=== PATIENT | male | born 1980 | race Caucasian/White ===

== ENCOUNTER 2019-06-07 12:59 | Outpatient (CLI) | payer BC, SELFPAY ==
[2019-06-07 13:22] LABS: HCT 45.4 % (40.0-50.0); HGB 15.4 g/dL (13.5-17.5); Mean Corp. HGB Concentration 33.9 g/dL (32.0-36.0); Mean Corpuscular Hemoglobin 30.2 pg (27.0-33.0); Mean Platelet Volume 7.8 fL (8.0-11.0); Platelet Count 235 x1000/uL (130-400); RBC Distribution Width 13.4 % (11.8-14.1); White Blood Cell Count 14.07 k/cumm (4.4-10.8)
[2019-06-07 14:28] LABS: ESR 7 mm/hr (0-15)
[2019-06-07 14:38] LABS: ALT 36 U/L (16-63); AST 17 U/L (15-37); Albumin 4.2 g/dL (3.4-5.0); Alkaline Phosphatase 80 U/L (46-116); Amylase 35 U/L (25-115); Anion Gap 10.3 mmol/L (3-11); BUN 15 mg/dL (7-18); Bilirubin, Direct 0.19 mg/dL (0.00-0.20); Bilirubin, Total 0.9 mg/dL (0.2-1.0); CO2 26.7 mmol/L (21.0-32.0); CREATININE 0.94 mg/dL (0.70-1.30); Chloride 99 mmol/L (98-107); Glucose 99 mg/dL (70-100); Lipase 79 U/L (73-393); Potassium 4.3 mmol/L (3.5-5.1); Sodium 136 mmol/L (136-145); Total Protein 7.4 g/dL (6.4-8.2)
[2019-06-11 13:22] LABS: Lyme Ab w Rflx to Lyme Confirm Negative (Negative)
[2019-06-12 16:12] LABS: Anaplasma phagocytophilum Negative (Negative); B. miyamotoi PCR Negative (Negative); Babesia divergens/MO-1 Negative (Negative); Babesia duncani Negative (Negative); Babesia microti Negative (Negative); Ehrlichia chaffeensis Negative (Negative); Ehrlichia ewingii/canis Negative (Negative); Ehrlichia muris eauclairensis Negative (Negative)
== END 2019-06-07 13:19 ==
PROVIDERS: Nurse Practitioner Family; PCP Family Medicine; Visit Provider Internal Medicine
DX: R19.7 Diarrhea, unspecified (principal); F10.20 Alcohol dependence, uncomplicated; B35.1 Tinea unguium; F10.10 Alcohol abuse, uncomplicated; R11.2 Nausea with vomiting, unspecified
CPT/HCPCS: 36415; 80053; 80076; 83690; 85027; 85652; 86704; 86709; 86803; 87340; 87798; 82150; 86618

== ENCOUNTER 2020-04-14 15:39 | Emergency (ER) | payer BC, SELFPAY ==
[2020-04-14 15:52] VITALS: BP 143/98; PULSE 94; RESP 18; TEMP 37; O2SAT 97
--- NOTE | 2020-04-14 16:03 | W.ED.GENAD ---
Discharge Plan Disposition Patient Disposition: HOME Condition: Good Discharge Details Clinical Impression: Laceration Primary Care Provider: Ashu Kahn ED Provider: Alisa Madera Home Meds and New Rx's Prescriptions: Continued clonidine HCl 0.1 mg tablet 0.1 mg PO BID RF: 0 bupropion HCl [Wellbutrin XL] 300 mg tablet extended release 24 hr 300 mg PO DAILY Qty: 90 RF: 3 dextroamphetamine-amphetamine 30 mg capsule,extended release 24hr 30 mg PO .COMPLEX MDD 2 Qty: 60 RF: 0 acetaminophen [Tylenol Extra Strength] 500 MG tablet 1,000 mg PO PRN RF: 0 trazodone 50 mg tablet 50 mg PO QHS PRN (Reason: insomnia) Qty: 30 RF: 1 ondansetron 4 mg tablet,disintegrating 4 mg PO Q8H PRN (Reason: nausea and vomiting) Qty: 60 RF: 0 ibuprofen 200 MG capsule 200 mg PO PRN PRNRF: 0 Discharge Instructions Instructions: Laceration (ED) Additional Instructions: you have 5 stitches that need to be removed in 7-10 days. return to ED to have them removed or see pcp. keep dressing clean and dry, remove tomorrow, wash daily with warm soapy water, rinse well, pat dry completely. apply dry dressing to protect report signs of infection immediately Medical Decision Making LET applied, would further anesthetized with lido/epi with good effect. wound bed examined, no debris or FB, irrigated with NS, wound closed using 4-0 ethilon 5 sutures, well approximated. cleaned by nursing , dry dressing applied. HPI General Date/Time Provider Initiated Documentation: 04/14/20 16:02. Limitations to Documentation: no limitations. Information obtained by: patient. HPI Narrative: presents here after injuring his left base of thumb with a sledge hammer, not a crushing injury but an abrasion/laceration. last tetanus in 2016. approx 1 cm laceration, full thickness. no bleeding, no other injury Related Data Home Medications Medication Instructions Recorded Confirmed ibuprofen 200 mg PO PRN PRN 11/29/14 04/14/20 acetaminophen [Tylenol Extra 1,000 mg PO PRN tab-cap 09/29/16 04/14/20 Strength] clonidine HCl 0.1 mg tablet 0.1 mg PO BID 12/11/18 04/14/20 trazodone 50 mg tablet 50 mg PO QHS PRN #30 tab 01/01/19 04/14/20 bupropion HCl 300 mg 24 hr tablet, 300 mg PO DAILY #90 tab 01/25/19 04/14/20 extended release dextroamphetamine-amphetamine ER 30 mg PO .COMPLEX #60 cap MDD 2 01/25/19 04/14/20 30 mg 24hr capsule,extend release ondansetron 4 mg disintegrating 4 mg PO Q8H PRN #60 tab 06/07/19 04/14/20 tablet Previous Rx's Medication Instructions Recorded trazodone 50 mg tablet 50 mg PO QHS PRN #30 tab 01/01/19 bupropion HCl 300 mg 24 hr tablet, 300 mg PO DAILY #90 tab 01/25/19 extended release dextroamphetamine-amphetamine ER 30 mg PO .COMPLEX #60 cap MDD 2 01/25/19 30 mg 24hr capsule,extend release ondansetron 4 mg disintegrating 4 mg PO Q8H PRN #60 tab 06/07/19 tablet Allergies Allergy/AdvReac Type Severity Reaction Status Date / Time Seasonal Allergy Intermediate Uncoded 04/14/20 15:58 General Stated Complaint: Laceration RYAN: 3 Review of Systems Constitutional Constitutional: Denies fever(s) Musculoskeletal Musculoskeletal: Reports joint swelling Integumentary/Breasts Skin/Breast: Reports other (laceration to palm) [facility] Medical History (Updated 04/14/20 @ 16:56 by Alisa Madera NP) ADHD (attention deficit hyperactivity disorder) Anxiety ETOH abuse History of multiple concussions Childhood Surgical History (Updated 05[facility]10/18 [facility] 14:[facility] Arthroscopy 12/10/16 LEFT HIP[facility] Left shoulder repair 2011 Repair, Undescended Testicle (07/25/85) Family History Mother Depression Father Essential hypertension Brother No problems noted. Grandfather No problems noted. Grandfather Essential hypertension Heart disease Hyperlipidemia Grandmother Depression Grandmother Essential hypertension Hyperlipidemia Social History Smoking/Tobacco Use Status: Current every day Tobacco Type: cigarettes Alcohol Intake: current Alcohol Intake frequency: 3 or more drinks per day Drug use: Daily Substance use type: marijuana Do you feel safe at home: Yes Do you feel safe in your relationship?: Yes Exam Const General: cooperative, healthy appearing, comfortable, no acute distress and anxious Nutritional Appearance: average body habitus Orientation: alert, awake and oriented x3 Cardio Rate: regular rate (radial) Skin Other: 1 cm laceration Course Vital Signs Vital signs: Vital Signs Temperature 37 C 04/14/20 15:52 Pulse 94 H 04/14/20 15:52 Respiratory Rate 18 04/14/20 15:52 Blood Pressure 143/98 H 04/14/20 15:52 Pulse Oximetry 97 04/14/20 15:52 Temperature 37 C 04/14/20 15:52 Temperature Source Temporal Artery Scan 04/14/20 15:52 Pulse 94 H 04/14/20 15:52 Respiratory Rate 18 04/14/20 15:52 Respiratory Effort Non-Labored 04/14/20 16:01 Blood Pressure 143/98 H 04/14/20 15:52 Blood Pressure Position Sitting 04/14/20 15:52 Pulse Oximetry 97 04/14/20 15:52 Oxygen Delivery Method Room Air 04/14/20 15:52 Oxygen Flow Rate 0 04/14/20 15:52 Pain Level 1 04/14/20 15:52
[2020-04-14] MEDS: Lidocaine/Epinephri/Tetracaine Topical Gel 3 ML TP (16:17)
== END 2020-04-14 17:31 | disposition home or self-care (01) ==
PROVIDERS: Emergency Provider Nurse Practitioner Acute Care; PCP Family Medicine
DX: S61.012A Laceration without foreign body of left thumb without damage to nail, initial encounter (principal); W27.8XXA Contact with other nonpowered hand tool, initial encounter
CPT/HCPCS: 12001

== ENCOUNTER 2020-11-05 09:52 | Outpatient (CLI) | payer BC, SELFPAY ==
[2020-11-05 12:29] LABS: Abs Immature Grans 0.13 10^3/uL (0.0-0.06); Absolute Basophil Count 0.07 10^3/uL (0.0-0.2); Absolute Lymphocyte Count 2.06 10^3/uL (1.2-3.4); Absolute Monocyte Count 0.59 10^3/uL (0.1-0.8); Basophils % 0.6; Eosinophils % 2.7; HGB 14.3 g/dL (13.5-17.5); Immature Grans % 1.1; Lymphocytes % 18.2; MCH 29.9 pg (27.0-33.0); MCHC 32.5 % (32.0-36.0); MCV 92.1 fL (80-95); MPV 8.4 fL (8.0-11.0); Monocytes % 5.2; Neutrophils % 72.2; Nucleated RBC 0 %; Platelet Count 289 10^3/uL (130-400); RBC 4.78 10^6/uL (4.36-5.78); RDW-SD 44.4 fL; WBC 11.31 10^3/uL (4.4-10.8)
[2020-11-05 12:32] LABS: Absolute Eosinophil Count 0.31 10^3/uL (0.0-0.7); Absolute Neutrophil Count 8.17 10^3/uL (1.2-6.7)
[2020-11-05 12:49] LABS: ALT 35 U/L (16-63); AST 18 U/L (15-37); Albumin 3.8 g/dL (3.4-5.0); Alkaline Phosphatase 80 U/L (46-116); Anion Gap 9.9 mmol/L (3-11); BUN 15 mg/dL (7-18); Bilirubin, Total 0.3 mg/dL (0.2-1.0); CO2 25.1 mmol/L (21.0-32.0); CREATININE 0.9 mg/dL (0.70-1.30); Calcium 9.1 mg/dL (8.5-10.1); Chloride 106 mmol/L (98-107); Glucose 110 mg/dL (74-106); Potassium 4.2 mmol/L (3.5-5.1); Sodium 141 mmol/L (136-145); Total Protein 6.8 g/dL (6.4-8.2)
== END 2020-11-05 09:53 | disposition home or self-care (01) ==
LOC: LOS 09:52
PROVIDERS: PCP Family Medicine; Referring Provider Family Medicine; Visit Provider Family Medicine
DX: R10.9 Unspecified abdominal pain (principal); D72.829 Elevated white blood cell count, unspecified
CPT/HCPCS: 36415; 80053; 85025

== ENCOUNTER 2021-01-14 08:40 | Outpatient (CLI) | payer BC, SELFPAY ==
--- NOTE | 2021-01-14 08:30 | DI.RAD_ITS ---
Exam(s) XR SHOULDER LT COMPLETE 2+V EXAM: XR SHOULDER LT COMPLETE 2+V CLINICAL HISTORY: shoulder pain. TECHNIQUE: 2D digital imaging was performed. COMPARISON: No exams were available for comparison FINDINGS: Limited two view study reveals no evidence of fracture or dislocation. No obvious degenerative calloway es. No calcifications in the soft tissues. Lucency in the lateral aspect of the humeral head is not ed measuring 9 x 6 millimeters which has appearance of benign cyst. Mild degenerative changes in the AC joint with slight offset of the AC joint noted on the frontal view. Correlation with site of tenderness is recommended. IMPRESSION: DATA REPOSITORY: RADIATION DOSE DELIVERED:
--- NOTE | 2021-01-14 08:30 | DI.RAD_ITS ---
Exam(s) XR SHOULDER RT COMPLETE 2+V EXAM: XR SHOULDER RT COMPLETE 2+V CLINICAL HISTORY: shoulder pain. TECHNIQUE: 2D digital imaging was performed. COMPARISON: CR XR SHOULDER LT COMPLETE 2+V from 01/14/2021 FINDINGS: Limited two view study reveals no evidence of fracture or dislocation no abnormal soft tissue calcifi cations. No obvious degenerative changes in the glenohumeral joint and AC joint. Slight offset of t he AC joint is noted. No degenerative changes in the AC joint. Correlation with site of tenderness is recommended IMPRESSION: DATA REPOSITORY: RADIATION DOSE DELIVERED:
== END 2021-01-14 08:41 | disposition home or self-care (01) ==
LOC: DIORS 08:40
PROVIDERS: PCP Family Medicine; Referring Provider Family Medicine; Visit Provider Physician Assistant
DX: M25.511 Pain in right shoulder (principal); M25.512 Pain in left shoulder; M85.612 Other cyst of bone, left shoulder
CPT/HCPCS: 73030

== ENCOUNTER 2021-07-14 01:40 | Outpatient (CLI) | payer BC, SELFPAY ==
[2021-07-14 10:30] LABS: Source Nasal/Nares
[2021-07-14 15:20] LABS: COVID-19 PCR Negative (Negative)
== END 2021-07-14 01:41 | disposition home or self-care (01) ==
LOC: LBO 01:40
PROVIDERS: PCP Family Medicine; Visit Provider Student in an Organized Health Care Education/Training Program
DX: Z20.822 Contact with and (suspected) exposure to COVID-19 (principal); Z01.818 Encounter for other preprocedural examination
CPT/HCPCS: 87635

== ENCOUNTER 2021-07-16 06:04 | Day surgery (SDC) | payer BC, SELFPAY ==
[2021-07-16] VITALS (9 sets, daily range): BP systolic 110–139; BP diastolic 73–86; PULSE 76–83; RESP 14–24; TEMP 36.3–36.8; O2SAT 96–99; BMI 28.0
--- NOTE | 2021-07-16 06:16 | W.ANESPRE ---
General Info Date of Service Date Performed: 07/16/21 Height: 6 ft 5 in Weight: 107.501 kg Body Mass Index (BMI): 28.0 Surgical Procedure: Operation Date: 07/16/21 07:40 Proposed Procedures Side Surgeon p Shoulder Arthroscopy w/extensive debridement,biceps tenodesis,subacromial decompression Left Raghavendra Loyd MD Meds Allergies and Home Medications Allergies Allergy/AdvReac Type Severity Reaction Status Date / Time Seasonal Allergy Intermediate Uncoded 07/16/21 06:18 Home Medication Medication Instructions Recorded ibuprofen 200 mg PO PRN PRN 11/29/14 acetaminophen [Tylenol Extra 1,000 mg PO PRN tab-cap 09/29/16 Strength] bupropion HCl 300 mg 24 hr tablet, 300 mg PO DAILY #90 tab 01/25/19 extended release clonidine HCl 0.1 mg tablet 0.1 mg PO BID PRN 04/29/20 losartan 25 mg tablet 25 mg PO DAILY #30 tab 10/20/20 lamotrigine 200 mg tablet 200 mg PO DAILY #90 tab 11/05/20 dextroamphetamine-amphetamine ER 30 mg PO DAILY cap 06/30/21 30 mg 24hr capsule,extend release olanzapine 10 mg PO DAILY PRN 07/15/21 Current Visit Medications: Current Medications Generic Name Dose Route Start Last Admin Trade Name Freq PRN Reason Stop Dose Admin Ringer's Solution 1,000 mls @ 100 mls/hr 07/16/21 06:00 IV 08/14/21 23:59 INFUSION ZAMZAM Cefazolin Sodium 3,000 mg/ 100 mls @ 200 mls/hr 07/16/21 06:00 Sodium Chloride IVPB 07/16/21 16:00 PREOP ZAMZAM IV Miscellaneous Supplies 1 each 07/16/21 06:00 Iv Access IV 08/14/21 23:59 DIRECTED ZAMZAM Sodium Chloride 0 ml 07/16/21 06:00 Normal Saline Flush 10 Ml Syr IV 08/14/21 23:59 PRN PRN Sodium Chloride 0 ml 07/16/21 06:00 Normal Saline 10 Ml Vial IJ 08/14/21 23:59 DIRECTED PRN Sterile Water 0 ml 07/16/21 06:00 Water,Injection,Sterile 10 Ml Vial IJ 08/14/21 23:59 DIRECTED PRN PFSH Active Problems Active Problems: Problem Status Onset Code Impingement syndrome of left shoulder M75.42 Bursitis of left shoulder M75.52 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 Biceps tendonitis on right M75.21 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 Tendinitis of long head of biceps brachii of left shoulder M75.22 Elevated WBC count D72.829 Paronychia of fourth toe, left L03.032 Essential hypertension I10 Nausea & vomiting R11.2 ADHD (attention deficit hyperactivity disorder) 03/01/14 F90.9 Alcohol abuse 02/21/15 F10.10 Anxiety disorder 03/01/14 F41.9 Depression 03/01/14 F32.9 Insomnia 03/01/14 G47.00 Labral tear of hip joint 12/10/16 S73.199A Left hip pain 10/25/16 M25.552 Medical History Medical History ADHD (attention deficit hyperactivity disorder) Anxiety ETOH abuse History of multiple concussions Childhood Surgical History Surgical History Arthroscopy 12/10/16 LEFT HIP-[facility] [place] Left shoulder repair 2011 Repair, Undescended Testicle (07/25/85) Tobacco Smoking/Tobacco Use Status: Current every day Tobacco Type: cigarettes Second hand exposure: Yes Alcohol Alcohol Intake: current Alcohol intake frequency: a few times a week Substance Use Substance use: Daily Substance use type: marijuana Vital Signs and Lab Results Vital Signs Most Recent Vital Signs in EMR: Temp Pulse Resp BP Pulse Ox 36.5 C 83 17 117/78 99 07/16/21 06:06 07/16/21 06:06 07/16/21 06:06 07/16/21 06:06 07/16/21 06:06 Lab Results Blood Type / Crossmatch: No Data to Display Complete Blood Count: No Data to Display Complete Metabolic Panel: No Data to Display Liver Function Panel: No Data to Display Coagulation Panel: No Data to Display Cardiac Panel: No Data to Display Arterial Blood Gas: No Data to Display Venous Blood Gas: No Data to Display Pancreas Panel: No Data to Display Thyroid Panel: No Data to Display Infectious Disease: Coronavirus (COVID-19)(PCR) Negative (Negative) 07/14/21 09:09 07/14/21 Coronavirus 2019 Source Nasal/Nares 07/14/21 09:09 07/14/21 Blood Cultures: No Data to Display Toxicology Panel: No Data to Display Anesthesia Assessment and Plan Anesthesia History Personal History: No History of Anesthesia Complications Family History: No Family History of Anesthesia Complications Exercise Tolerance Exercise Tolerance: Metabolic Equivalents>4 Cardiac & Pulmonary Exam Cardiac Exam: Normal S1/S2 Heart Sounds Pulmonary Exam: Clear Bilateral Breath Sounds Implantable Cardiac Device Does patient have a Pacemaker or an ICD?: No Airway Exam Known Difficult Airway: No Mallampati Class: 1 Mouth Opening: Normal (> 3cm) Thyromental Distance: Less than 3 cm Neck Range of Motion: Full ROM Neck Circumference: Normal Teeth Condition: Normal Dentition ASA Classification ASA Score: ASA 2 Emergency Case?: No NPO Status NPO Status: NPO Clears >2 hours, Solids >8 hours Anesthesia Plan Resuscitation Status: Full Code Anesthesia Technique: General Anesthesia Airway Planned: Endotracheal Tube Pain Management: Surgeon and patient request nerve block Monitors Used: Standard Monitors Preoperative Comments:: 40 yo male for left shoulder arthroscopy. Previous repair was at [facility]. Sig PMHx: current smoker (cannabis/tobacco), occ EtOH, ADHD, HTN (losartan), anxiety. Previous Anes: 2009/[employer] mac 3 grade 1, easy mask, tolerated beach chair. Discussed risks, benefits, and alternatives of GA and ISB. Risks including but not limited to damage to teeth, lips gums, reactions to medications, skin/nerve/eye injuries, and rare events such as heart/breathing/neurologic complications. Discussed the ISB and the risk of 1:2500-1:5000 of permanent nerve injury, horners syndrome, and diaphragm paralysis.
[2021-07-16] MEDS: Lactated Ringers 1,000 ML 100 ML IV (06:41)
[2021-07-16] MEDS: ceFAZolin 3,000 MG in Normal Saline 100 ML 200 MG IVPB (07:30)
--- NOTE | 2021-07-16 07:57 | W.ANESNERVE ---
Nerve Block Single Injection Procedure Date and Time Date Performed: 07/16/21 Procedure Start: 07:12 Location Where Procedure Performed Procedure Location: Day Surgery Unit Reason Performed: Postoperative Analgesia Requesting Provider: Raghavendra Loyd Timeout Performed Timeout Performed: Yes Monitoring Used ECG, Blood Pressure, SpO2 and ETCO2 Sterility Sterility: Hand Hygiene, Surgical Cap, Surgical Mask and Sterile Gloves Sedation Given During Procedure Sedation Given (Indicate Dose Given): Versed IV Dose:: 2 mg and Ketamine IV Dose:: 10 mg Patient Mental Status Patient Mental Status: Sedate with meaningful communication Nerve Block 1st Nerve Block: Laterality: Left Block Type: Interscalene Needle / Catheter Used: 100mm SonoPlex II Local Anesthetic Bolus (Indicate Dose Given): Lidocaine used for local infiltration of skin, Injected in 3-5ml increments after negative blood aspiration, Bupivacaine 0.5% Dose:: 15 mL and Exparel Dose:: 10 mL Additives (Indicate Dose Given): None Ultrasound: Sterile probe cover and gel used Ultrasound Image Saved?: Yes Nerve Stimulator: Not Used Paresthesia: None Procedure Tolerated: No Complications Procedure Outcome: Successful Performed By: Johan Hickman
--- NOTE | 2021-07-16 08:30 | ROE_ITS ---
Date of service: 07/16/21 Time of Service: 08:00 Operative Note Operative Note DATE OF PROCEDURE: 07/16/21 PRE-OP DIAGNOSIS: Left: 1. Prior SLAP and HAGL repairs 2. LHB tendinopathy 3. Bursitis 4. Impingement POST-OP DIAGNOSIS: same PROCEDURE: Left: 1. Arthroscopic biceps tenodesis, CPT# 39121. This involved arthroscopically suturing and reattaching the long head of the biceps tendon to the proximal humerus at the superior margin of the bicipital groove with a screw at the correct tension. 2. Extensive debridement, CPT# 60288. This involved using arthroscopic hand instruments, power instruments, and radiofrequency instruments to release the long head of the biceps tendon and debride areas of labral tearing, synovitis, and chondromalacia about the biceps groove within the glenohumeral joint anteriorly, superiorly and posteriorly. 3. Subacromial decompression, CPT# 86148. This involved using arthroscopic power instruments and a radiofrequency wand to complete a bursectomy. 4. Removal of hardware, CPT #16696. Removal of retained labral repair suture material and knot stacks The certified medical technician assistant was medically required in order to help assist in techniques above, which require positioning the arm, holding the arthroscope, and manipulating multiple instruments and sutures at the same time. This cannot be done without the help of an experienced certified medical technician assistant. SURGEON: Raghavendra Loyd PERFECT BIND MACHINE OPERATOR: Neno Agustin ANESTHESIA TYPE: General LMA/ETT and Primary Nerve Block Refer to Anesthesia Record ESTIMATED BLOOD LOSS: 10 PATHOLOGY: none sent COMPLICATIONS: None Patient was transported to: PACU Patient's condition: stable Implants: Arthrex: 4.75mm SwiveLocks x 1 Indications: The patient was diagnosed with the above conditions and appropriately indicated for surgical intervention. Please see complete medical record for details. Findings: Exam under anesthesia: Full range of motion, no instability Glenohumeral joint: Recurrent SLAP tear and anterior labral diminutive frayed tissue failed prior repair with prominent knot stacks and permanent suture. Unstable biceps tendon anchor. Preserved intra-articular long head biceps tendon. Significant subscapularis superficial fraying without any structural tearing. Moderate chondromalacia about the bicipital groove. Central glenoid cartilage softening thinning. Intact articular supraspinatus and infraspinatus. Unable to visualize any abnormalities in axillary recess. Subacromial space: Significant bursitis. No significant undersurface acromial bone spur. No bursal rotator cuff tear. Procedure Description: In the operating room, general anesthesia was induced. Bilateral shoulders were examined. The patient was positioned in the beachchair position. All bony prominences were well-padded. Preoperative antibiotics were administered. The shoulder was prepped and draped in the usual sterile fashion. The correct patient, procedure, and side of the procedure were all verified prior to incision. Starting through the posterior portal a standard complete diagnostic arthroscopy was performed of the glenohumeral joint including inspection of the long head of the biceps, anterior and superior labrum, subscapularis tendon, supraspinatus and infraspinatus tendons, and axillary recess. The glenoid and humeral head cartilage as well as the posterior labrum were inspected from an anterior viewing portal. Significant findings and interventions noted above. Rigid cannula was inserted anteriorly. Rotator cuff grasper was used to remove retained permanent suture material or knot stacks from failed anterior and anterior superior labral repair. Combination of shaver and radiofrequency ablator working anteriorly and posteriorly was used to contour appropriately anterior superior and posterior labrum with most of the work anteriorly and superiorly. Biceps anchor was unstable. An all-arthroscopic suprapectoral biceps tenodesis was performed using a Loop N Tack method with a SutureTape Fib erLink cinched around and through the tendon. The biceps was tenotomized from the labrum and fixated with a suture anchor at the superior margin of the bicipital groove. Starting through the posterior portal, the arthroscope was directed into the subacromial space. A lateral 50 yard line lateral portal was omitted. The anterior portal cannula was removed and the anterior portal redirected at the subacromial space. A combination of power instruments and a radiofrequency ablator were used to debride bursitis anteriorly, posteriorly, and laterally. The coracoacromial ligament was preserved. The shoulder was drained of arthroscopic fluid. All portal sites were copiously irrigated. These incisions were closed using 3-0 Monocryl in a buried fashion and then covered with Mastisol, Steri-Strips, Xeroform, dry gauze, and ABDs. The dressings were covered and secured with Medipore tape. The operative extremity was placed into a sling for immobilization. The patient awoke from anesthesia without complication and was transferred to the recovery room in a stable condition.
[2021-07-16] MEDS: EPINEPHrine 30 MG/30 ML VIAL (08:31)
--- NOTE | 2021-07-16 08:51 | PDOC.DSDIS_ITS ---
Discharge Plan Disposition Patient Disposition: HOME Condition: Stable Discharge Details Reason For Visit: Left shoulder surgery Attending Provider: Raghavendra Loyd Primary Care Provider: Ashu Kahn Home Meds and New Rx's Prescriptions: New aspirin 81 mg tablet,delayed release (DR/EC) 81 mg PO DAILY 14 Days Qty: 14 RF: 0 naproxen 250 mg tablet 250 - 500 mg PO BID PRNQty: 40 RF: 0 oxycodone 5 mg tablet 5 - 10 mg PO Q4H PRN (Reason: moderate to severe pain) Qty: 18 RF: 0 Continued clonidine HCl 0.1 mg tablet 0.1 mg PO BID PRNRF: 0 dextroamphetamine-amphetamine 30 mg capsule,extended release 24hr 30 mg PO DAILY RF: 0 lamotrigine 200 mg tablet 200 mg PO DAILY Qty: 90 RF: 3 bupropion HCl [Wellbutrin XL] 300 mg tablet extended release 24 hr 300 mg PO DAILY Qty: 90 RF: 3 acetaminophen [Tylenol Extra Strength] 500 MG tablet 1,000 mg PO PRN RF: 0 losartan 25 mg tablet 25 mg PO DAILY Qty: 30 RF: 2 olanzapine 20 mg tablet 10 mg PO DAILY PRNRF: 0 Discontinued ibuprofen 200 MG capsule 200 mg PO PRN PRNRF: 0 Discharge Instructions Additional Instructions: Surgery: Left shoulder arthroscopy with biceps tenodesis, extensive debridement, subacromial decompression, and removal of hardware. Activity: You should gradually increase range of motion motion and use of your shoulder. Please perform daily stretching exercises. You may use your shoulder for all regular activities. Avoid heavy lifting, reaching overhead, and lifting away from body for approximately 6 to 8 weeks. You may use the sling whenever you are out of the house for a few weeks. At home it is best to remove the sling and rest the arm on a pillow at your side or support the operative side with your other hand. A physical therapy prescription will be sent electronically to start in about 2 weeks. Prescriptions: Aspirin 81 mg take 1 daily to prevent a blood clot for 2 weeks Naproxen 250 mg take 1-2 every 12 hours with a meal as needed for moderate pain Oxycodone 5 mg take 1-2 every 4-6 hours as needed for severe pain You may use [id number] Tylenol (acetaminophen) as needed for mild pain. These pain medications may be taken all at once or in different combinations as needed. Also, recommend Colace (docusate) as a stool softener as surgery and pain medicine cause constipation. Dressings: Remove shoulder bandage after 3 days. Leave the sticky Steri-Strips in place until they fall off or remove them after you shower. Cover the incisions with Band-Aids or leave them open to air. You may shower after 5 days. Follow-up: 10-[address] Loyd You may take off the leg compression stockings this evening at home. You may also leave them on a few days longer if you have a history of leg swelling or edema. Let us know right away if you develop any redness, drainage, fevers, chest pain, or trouble breathing. Do not drink alcohol or drive for at least 24 hours after anesthesia. Please call the office during business hours with any questions or concerns. Referrals: Raghavendra Loyd MD [ [facility] STAFF PHYSICIAN] - Discharge Orders Discharge Orders: Discharge Order (Routine); Ordered 07/16/21 Ordered By: Raghavendra Loyd DS: Diagnosis Discharge Diagnosis (1) Impingement syndrome of left shoulder: Status: Acute (2) Bursitis of left shoulder: Status: Acute (3) Superior labrum [id number] (SLAP) tear of left shoulder: Status: Suspected (4) Instability of left shoulder joint: Status: Acute (5) Tendinitis of long head of biceps brachii of left shoulder: Status: Acute
[2021-07-16] MEDS: HYDROmorphone 2 MG/ML VIAL IVP (09:39)
--- NOTE | 2021-07-16 10:14 | W.ANESPOSTOP ---
Postoperative Evaluation Date, Time and Location Date Performed: 07/16/21 Time Performed: 10:14 Patient Location: PACU Vital Signs Most Recent Imported Vital Signs: Most Recent Vital Signs Temp Pulse Resp BP Pulse Ox 36.7 C 79 14 125/78 96 07/16/21 09:50 07/16/21 09:50 07/16/21 09:50 07/16/21 09:50 07/16/21 09:50 Pain Score Most Recent Pain Score: Most Recent Pain Score Pain Level 7 07/16/21 09:50 Assessment Mental Status: Awake (Alert & Oriented to Patient Baseline) Airway and Respiratory Function: Patent airway with normal (patient baseline) respiratory exam Cardiovascular Function: Hemodynamically Stable Hydration Status: Adequately Hydrated Nausea & Vomiting: No Nausea or Vomiting Pain: Pain is tolerable per patient (Pain appears to be t1-t2 region) Peripheral Nerve Block: Regional nerve block not resolved at time of post operative discharge
== END 2021-07-16 11:09 | disposition home or self-care (01) ==
PROVIDERS: PCP Family Medicine; Visit Provider Student in an Organized Health Care Education/Training Program
PROC: (CPT 29805; principal; 2021-07-16 07:30)
DX: M75.42 Impingement syndrome of left shoulder (principal); M75.52 Bursitis of left shoulder; M75.22 Bicipital tendinitis, left shoulder; M75.32 Calcific tendinitis of left shoulder; F10.10 Alcohol abuse, uncomplicated
CPT/HCPCS: 29828; 20680; 29823; 29826; 76942; J0690; J1100; J1885; J2250; J2370; J2405; J2704

== ENCOUNTER 2021-09-01 13:24 | Outpatient (REF) | payer BC, SELFPAY ==
[2021-09-03 13:06] LABS: COVID-19 RT-PCR UVMMC Result Negative (Negative)
== END 2021-09-01 13:25 | disposition home or self-care (01) ==
LOC: LBN 13:24
PROVIDERS: PCP Family Medicine; Visit Provider Family Medicine
DX: Z20.822 Contact with and (suspected) exposure to COVID-19 (principal); R05.8 Other specified cough
CPT/HCPCS: U0003

== ENCOUNTER 2021-10-26 20:13 | Outpatient (REF) | payer BC, SELFPAY ==
[2021-10-28 11:33] LABS: COVID-19 RT-PCR UVMMC Result Negative (Negative)
== END 2021-10-26 20:14 | disposition home or self-care (01) ==
LOC: LBN 20:13
PROVIDERS: PCP Family Medicine; Visit Provider Family Medicine
DX: Z20.822 Contact with and (suspected) exposure to COVID-19 (principal); J06.9 Acute upper respiratory infection, unspecified
CPT/HCPCS: U0003

== ENCOUNTER 2021-11-03 16:01 | Outpatient (REF) | payer BC, SELFPAY ==
[2021-11-05 11:26] LABS: COVID-19 RT-PCR UVMMC Result Negative (Negative)
== END 2021-11-03 16:02 | disposition home or self-care (01) ==
LOC: LBN 16:01
PROVIDERS: PCP Family Medicine; Visit Provider Family Medicine
DX: Z20.822 Contact with and (suspected) exposure to COVID-19 (principal); J06.9 Acute upper respiratory infection, unspecified
CPT/HCPCS: U0003

== ENCOUNTER 2021-12-20 02:11 | Emergency (ER) | payer BC, SELFPAY ==
[2021-12-20 02:15] VITALS: TEMP 36.9
[2021-12-20 02:20] VITALS: BP 148/95; PULSE 87; RESP 16; TEMP 36.8; O2SAT 97
--- NOTE | 2021-12-20 02:37 | W.ED.GENAD ---
Discharge Plan Disposition Patient Disposition: HOME Condition: Good Discharge Details Clinical Impression: Laceration of foot, right Primary Care Provider: Ashu Kahn ED Provider: Jack Wallace Home Meds and New Rx's Prescriptions: Continued clonidine HCl 0.1 mg tablet 0.1 mg PO BID PRN Label Comments: Pt reported, Dr. Muller prescribes dextroamphetamine-amphetamine 30 mg capsule,extended release 24hr 30 mg PO DAILY albuterol sulfate 90 mcg/actuation HFA aerosol inhaler 2 puff inhalation Q4H PRN (Reason: shortness of breath or wheezing) Qty: 8.5 3RF (DME) Space Chamber Spacer See Rx Instructions .ROUTE .MEDSUPPLY Qty: 1 0RF Rx Instructions: As directed lamotrigine 200 mg tablet 200 mg PO DAILY Qty: 90 3RF Rx Instructions: per psych losartan 50 mg tablet 50 mg PO DAILY Qty: 90 3RF bupropion HCl [Wellbutrin XL] 300 mg tablet extended release 24 hr 300 mg PO DAILY Qty: 90 3RF acetaminophen [Tylenol Extra Strength] 500 MG tablet 1,000 mg PO PRN olanzapine 20 mg tablet 10 mg PO DAILY PRN Discharge Instructions Instructions: Laceration (ED) Additional Instructions: Please leave the dressing on for 24 hours, then you may remove and begin cleaning the wound at least twice a day with soap and water. Continue to apply antibiotic ointment. Do not directly soak the area. Watch for any signs of infection and return if any increasing redness, swelling, pain, drainage. Please return in the next 7 to 10 days to have it removed. Please keep the area covered. If you notice any worsening of your symptoms, or any new symptoms such as vomiting, diarrhea, fever, chills, shortness of breath, chest pain, numbness, weakness, or fainting , please return immediately to the emergency department for reevaluation. Please follow up with your primary care provider as soon as possible for reassessment and reevaluation. As always, it was a pleasure participating in your medical care today. Referrals: Ashu Kahn MD [Primary Care Provider] - Medical Decision Making 41-year-old male presents today for evaluation of laceration to his right foot. Patient states he had right at about 12 hours ago he dropped a abdelrahman jar, the glass cut his foot. He washed it out with alcohol and water, he bandaged it with Steri-Strips, and continued throughout his stay. Unfortunately it started bleeding again this evening, so he came to the ER for suture management. He denies any numbness or tingling. He states that no glass got in the cot at all due to the nature of the break. He denies any other complaints. Tetanus is not up-to-date. Physical exam demonstrates a small 3 cm laceration on the medial aspect of the patient's foot. Minimal active bleeding. No evidence of deep tendon involvement. Good movement, normal neurovascular exam distal to the laceration site. Tetanus will be updated here. No evidence of foreign body on exam. Patient has declined x-ray imaging. Patient was numbed, the area was cleaned, 2 sutures were placed. Patient tolerated this well. Discussed red flags which return. I have extensively reviewed the treatment plan and discharge instructions with the patient. I have addressed all patient concerns at this time. The patient was made aware of what symptoms to monitor for that would warrant a return to the emergency department. Discussed the plan with the patient, they demonstrate verbal understanding and agreement with our assessment and plan at this time. The documentation in this chart was dictated using [employer] dictation software. Please excuse any dictation errors. HPI General Date/Time Provider Initiated Documentation: 12/20/21 02:37. HPI Narrative: 41-year-old male presents today for evaluation of laceration to his right foot. Patient states he had right at about 12 hours ago he dropped a abdelrahman jar, the glass cut his foot. He washed it out with alcohol and water, he bandaged it with Steri-Strips, and continued throughout his stay. Unfortunately it started bleeding again this evening, so he came to the ER for suture management. He denies any numbness or tingling. He states that no glass got in the cot at all due to the nature of the break. He denies any other complaints. Tetanus is not up-to-date. Related Data Home Medications Medication Instructions Recorded Confirmed acetaminophen 500 mg tablet 1,000 mg PO PRN 09/29/16 12/20/21 (Tylenol Extra Strength) bupropion HCl 300 mg 24 hr tablet, 300 mg PO DAILY #90 tabs 01/25/19 12/20/21 extended release (Wellbutrin XL) clonidine HCl 0.1 mg tablet 0.1 mg PO BID PRN 04/29/20 12/20/21 lamotrigine 200 mg tablet 200 mg PO DAILY #90 tabs 11/05/20 12/20/21 dextroamphetamine-amphetamine ER 30 mg PO DAILY 06/30/21 12/20/21 30 mg 24hr capsule,extend release olanzapine 20 mg tablet 10 mg PO DAILY PRN 07/15/21 12/20/21 albuterol sulfate 90 mcg/actuation 2 puff inhalation Q4H PRN 10/26/21 12/20/21 aerosol inhaler shortness of breath or wheezing #8.5 grams inhalational spacing device (Space #1 ea 10/26/21 11/09/21 Chamber) losartan 50 mg tablet 50 mg PO DAILY #90 tabs 11/09/21 12/20/21 Previous Rx's Medication Instructions Recorded bupropion HCl 300 mg 24 hr tablet, 300 mg PO DAILY #90 tabs 01/25/19 extended release (Wellbutrin XL) lamotrigine 200 mg tablet 200 mg PO DAILY #90 tabs 11/05/20 albuterol sulfate 90 mcg/actuation 2 puff inhalation Q4H PRN 10/26/21 aerosol inhaler shortness of breath or wheezing #8.5 grams inhalational spacing device (Space #1 ea 10/26/21 Chamber) losartan 50 mg tablet 50 mg PO DAILY #90 tabs 11/09/21 Allergies Allergy/AdvReac Type Severity Reaction Status Date / Time Seasonal Allergy Intermediate Uncoded 12/20/21 02:18 General Stated Complaint: Laceration RYAN: 4 Review of Systems All systems reviewed & are unremarkable except as noted in HPI and below PFSH All Active Problems (Updated 12/20/21 @ 02:37 by Jack Wallace DO) Laceration of foot, right (Acute) Impingement syndrome of left shoulder (Acute) Bursitis of left shoulder (Acute) Instability of right shoulder joint (Acute) Biceps tendonitis on right (Acute) Tendinitis of long head of biceps brachii of left shoulder (Acute) Elevated WBC count (Acute) Paronychia of fourth toe, left (Acute) Essential hypertension (Acute) Nausea & vomiting (Acute) ADHD (attention deficit hyperactivity disorder) (Acute 03/01/14) Alcohol abuse (Acute 02/21/15) Anxiety disorder (Acute 03/01/14) Depression (Acute 03/01/14) suiciadal ideation with self inflicted cuts while intoxicated on 11/25/14.continues in partial hospitalization in [place] Insomnia (Acute 03/01/14) Labral tear of hip joint (Acute 12/10/16) [facility] [place] [place] ARTHROSCOPY Left hip pain (Acute 10/25/16) [facility] Medical History (Updated 12/20/21 @ 02:37 by Jack Wallace DO) ADHD (attention deficit hyperactivity disorder) Anxiety ETOH abuse History of multiple concussions Childhood Instability of left shoulder joint Surgical History Arthroscopy 12/10/16 LEFT HIP[place] [place] Left shoulder repair 2011 Repair, Undescended Testicle (07/25/85) Family History (Updated 11/05/20 @ 13:41 by Agata Mcpherson) Mother Depression Father Essential hypertension Grandfather Essential hypertension Heart disease Hyperlipidemia Grandmother Depression Grandmother Essential hypertension Hyperlipidemia Social History (Updated 11/05/20 @ 13:40 by Agata Mcpherson) Smoking/Tobacco Use Status: Current every day Tobacco Type: cigarettes Second Hand Exposure: Yes Smoking risk assessment performed?: Yes Alcohol Intake: current Alcohol Intake frequency: a few times a week Alcohol type: beer and wine Drug use: Daily Substance use type: marijuana Details: last used 07.15.21 Household members: spouse and family Housing: house Communication Needs: None Do you need help understanding health information?: Never Pets and animals: Yes Pets and animals: cat(s), dog(s) and bird(s) Sexually active: Yes Do you think of yourself as: lesbian/aparicio/homosexual Current gender identity: male What is your relationship status?: How often do you talk on the phone with friends or family?: never How often do you get together with friends or relatives?: never Do you belong to any clubs or organized social groups?: no Panel score (0-1 are the most socially isolated patients): 1 Seatbelt use: always Helmet use: Yes Helmet use: always Drive intox or ride w/intox flag car driver: No Do you feel safe at home: Yes Do you feel safe in your relationship?: Yes Exam Narrative Exam Narrative: 1.Const: Well-nourished, Well-developed, appearing stated age 2.Eyes: PERRL, no conjunctival injection, and symmetrical lids. 3.ENT: Atraumatic external nose and ears. Moist MM. Neck: Symmetric, trachea midline, No thyromegaly. 4.CVS: +S1/S2, No murmurs or gallops. Peripheral pulses 2+ and equal in all extremities. Brisk capillary refill in all extremities. 5.RESP: Unlabored respiratory effort. Clear to auscultation bilaterally. No wheezes rales or rhonchi 6.GI: Soft, Nontender/Nondistended, No hepatosplenomegaly. No guarding or rebound. 7.MSK: Normocephalic/Atraumatic, Extremities w/o deformity or ttp No cyanosis or clubbing, Normal movement of all extremities 8.Skin: 3 cm laceration on the medial aspect of the foot. Superficial, with no deep tendon involvement. Mild active bleeding. Distal exam demonstrates good sensation, brisk capillary refill. 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 Sensation grossly intact, no focal neurologic deficits. 10.Psych: (AAO) x3. Appropriate mood and affect Course Vital Signs Vital signs: Vital Signs Temperature 36.9 C 12/20/21 02:15 Temperature 36.8 C 12/20/21 02:20 Temperature Source Oral 12/20/21 02:20 Pulse 87 12/20/21 02:20 Respiratory Rate 16 12/20/21 02:20 Respiratory Effort Non-Labored 12/20/21 02:21 Blood Pressure 148/95 H 12/20/21 02:20 Pulse Oximetry 97 12/20/21 02:20 Oxygen Delivery Method Room Air 12/20/21 02:20 Oxygen Flow Rate 0 12/20/21 02:20 Pain Level 4 12/20/21 02:20 Comment 12/20/21 02:20 Procedures Laceration Laceration 1: Site: lower extremity Side (If applicable): right Size (cm): 3 Description: linear Depth: simple, single layer Local Anesthetic: Lidocaine 1% Amount of anesthesia used (mL): 5 Pre-repair: wound explored, irrigated extensively and deep structures intact Skin layer closed with: nylon Size (cm): 4-0 Number of sutures: 2 Technique: simple, interrupted PAWSS Have you Been Recently Intoxicated or Drunk Within the Last 30 days?: No Have you Ever Experienced Previous Episodes of Alcohol Withdrawal?: No Have you ever Experienced Withdrawal Seizures?: No Have you ever Experienced Delirium Tremens(DT)s?: No Have you ever undergone Alcohol Rehabilitation Treatment (i.e, inpt ot outpatient treatment programs)?: No Have you ever Experienced Blackouts?: No Have you ever Combined Alcohol with other Downers within the last 90 days?: No Have you ever Combined Alcohol with any other Substance of Abuse during the last 90 days?: No Positive Blood Alcohol level on Presentation? [PCS.BAL]: No Evidence of Increased Autonomic Activity (i.e. HR>120, tremor, sweating, agitation, nausea)?: No Result: 0
== END 2021-12-20 02:48 | disposition home or self-care (01) ==
LOC: ER 02:46
PROVIDERS: Emergency Provider Student in an Organized Health Care Education/Training Program; PCP Family Medicine
DX: S91.311A Laceration without foreign body, right foot, initial encounter (principal); W25.XXXA Contact with sharp glass, initial encounter
CPT/HCPCS: 12002

== ENCOUNTER 2022-09-08 01:09 | Outpatient (CLI) | payer BC, SELFPAY ==
--- NOTE | 2022-09-08 06:45 | DI.MRI_ITS ---
Exam(s) MR UPPER JOINT RT WO EXAM: MR UPPER JOINT RT WO CLINICAL HISTORY: POSSIBLE SLAP TEAR,INSTABILITIY RT SHOULDER, M25.311. TECHNIQUE: Multiplanar multisequence MRI was performed. COMPARISON: Plain films 14 January 2021 FINDINGS: BONES: There is no fracture or contusion pattern. JOINTS:The acromioclavicular joint is normal. The glenohumeral joint is normal. No joint effusion is seen. TENDONS: Supraspinatus: Some thickening distally and small focus of high signal anteriorly may represent a sma ll partial tear. Infraspinatus: Unremarkable. Subscapularis: Unremarkable. [place]: Unremarkable. Biceps and [place]: Unremarkable. MUSCLES: Unremarkable. GLENOID LABRUM: Unremarkable on this noncontrast examination. SOFT TISSUES: Unremarkable. OTHER: Subacromial and subdeltoid bursae . IMPRESSION: No visible labral tear. Partial tear anterior supraspinatus tendon DATA REPOSITORY:
== END 2022-09-08 01:29 ==
LOC: DI 01:09
PROVIDERS: PCP Family Medicine; Visit Provider Student in an Organized Health Care Education/Training Program
DX: M75.101 Unspecified rotator cuff tear or rupture of right shoulder, not specified as traumatic (principal)
CPT/HCPCS: 73221

== ENCOUNTER 2022-09-14 11:20 | Outpatient (CLI) | payer BC, SELFPAY ==
--- NOTE | 2022-09-14 11:15 | DI.RAD_ITS ---
Exam(s) XR SHOULDER RT COMPLETE 2+V EXAM: XR SHOULDER RT COMPLETE 2+V CLINICAL HISTORY: RIGHT SHOULDER F/U. TECHNIQUE: 2D digital imaging was performed of the right shoulder. Two images were obtained. AP an d Y views were obtained. COMPARISON: CR XR SHOULDER RT COMPLETE 2+V from 01/14/2021 FINDINGS: BONES: No acute fracture is present. No bony destructive lesion is seen. JOINTS: No dislocation present. SOFT TISSUE: Normal. IMPRESSION: Unremarkable radiographs of the right shoulder. DATA REPOSITORY: RADIATION DOSE DELIVERED:
== END 2022-09-14 11:21 | disposition home or self-care (01) ==
LOC: DIORS 11:20
PROVIDERS: PCP Family Medicine; Referring Provider Family Medicine; Visit Provider Student in an Organized Health Care Education/Training Program
DX: M25.311 Other instability, right shoulder (principal)
CPT/HCPCS: 73030

== ENCOUNTER 2022-10-08 06:19 | Day surgery (SDC) | payer BC, SELFPAY ==
[2022-10-08] VITALS (14 sets, daily range): BP systolic 117–177; BP diastolic 67–161; PULSE 59–100; RESP 13–24; TEMP 35.9–37; O2SAT 90–100; BMI 27.6
--- NOTE | 2022-10-08 06:31 | W.ANESPRE ---
General Info Date of Service Date Performed: 10/08/22 Height: 6 ft 5 in Weight: 105.687 kg Body Mass Index (BMI): 27.6 Surgical Procedure: Operation Date: 10/08/22 07:40 Proposed Procedure Side Surgeon p Shoulder Possible Rotator Cuff Arthroscopic w/ Extensive Debridement, Biceps Tenodesis, Subacromial Decompression Right Raghavendra Loyd MD Meds Allergies and Home Medications Allergies Allergy/AdvReac Type Severity Reaction Status Date / Time Seasonal Allergy Intermediate Uncoded 10/08/22 06:32 Home Medication Medication Instructions Recorded acetaminophen 500 mg tablet 1,000 mg PO PRN 09/29/16 (Tylenol Extra Strength) bupropion HCl 300 mg 24 hr tablet, 300 mg PO DAILY #90 tabs 01/25/19 extended release (Wellbutrin XL) dextroamphetamine-amphetamine ER 30 mg PO DAILY 06/30/21 30 mg 24hr capsule,extend release albuterol sulfate 90 mcg/actuation 2 puff inhalation Q4H PRN 10/26/21 aerosol inhaler shortness of breath or wheezing #8.5 grams inhalational spacing device (Space #1 ea 10/26/21 Chamber) losartan 50 mg tablet 50 mg PO DAILY #90 tabs 11/09/21 lamotrigine 200 mg tablet,extended 200 mg PO DAILY #90 tabs 06/09/22 release 24 hr clonidine HCl 0.1 mg tablet 0.2 mg PO BID PRN PTSD #60 tabs 07/26/22 Current Visit Medications: Current Medications Generic Name Dose Route Start Last Admin Trade Name Freq PRN Reason Stop Dose Admin Ringer's Solution 1,000 mls @ 30 mls/hr 10/08/22 06:00 IV 10/08/22 16:00 INFUSION ZAMZAM Cefazolin Sodium/Dextrose 2 gm in 50 mls @ 100 mls/hr 10/08/22 06:00 Ancef Duplex IVPB 10/08/22 23:59 PREOP ZAMZAM IV Miscellaneous Supplies 1 each 10/08/22 06:00 Iv Access IV 10/08/22 23:59 DIRECTED ZAMZAM Sodium Chloride 0 ml 10/08/22 06:00 Normal Saline Flush 10 Ml Syr IV 10/08/22 23:59 PRN PRN Sodium Chloride 0 ml 10/08/22 06:00 Normal Saline 10 Ml Vial IJ 10/08/22 23:59 DIRECTED PRN Sterile Water 0 ml 10/08/22 06:00 Water,Injection,Sterile 10 Ml Vial IJ 10/08/22 23:59 DIRECTED PRN PFSH Active Problems Active Problems: Problem Status Onset Code Left hip pain 10/25/16 M25.552 Labral tear of hip joint 12/10/16 S73.199A Insomnia 03/01/14 G47.00 Depression 03/01/14 F32.9 Anxiety disorder 03/01/14 F41.9 Alcohol abuse 02/21/15 F10.10 ADHD (attention deficit hyperactivity disorder) 03/01/14 F90.9 Nausea & vomiting R11.2 Essential hypertension I10 Paronychia of fourth toe, left L03.032 Elevated WBC count D72.829 Impingement syndrome of right shoulder M75.41 Biceps tendonitis on right M75.21 Contact dermatitis L25.9 SLAP lesion of right shoulder S43.431A Sprain of right acromioclavicular joint 09/09/22 S43.51XA Medical History Medical History ADHD (attention deficit hyperactivity disorder) Anxiety Bursitis of left shoulder ETOH abuse History of multiple concussions Childhood Impingement syndrome of left shoulder Instability of left shoulder joint Instability of right shoulder joint Tendinitis of long head of biceps brachii of left shoulder Surgical History Surgical History (Updated 10/07/22 @ 15:54 by Toña Dougherty) Arthroscopy 12/10/16 LEFT HIP[place] [place] Left shoulder repair 07/14 [facility] Repair, Undescended Testicle (07/25/85) Tobacco Smoking/Tobacco Use Status: Current every day Tobacco Type: cigarettes Second hand exposure: Yes Alcohol Alcohol Intake: current Alcohol intake frequency: a few times a week Alcohol type: beer, wine and hard liquor Substance Use Substance use: Daily Substance use type: marijuana Vital Signs and Lab Results Lab Results Blood Type / Crossmatch: No Data to Display Complete Blood Count: No Data to Display Complete Metabolic Panel: No Data to Display Liver Function Panel: No Data to Display Coagulation Panel: No Data to Display Cardiac Panel: No Data to Display Arterial Blood Gas: No Data to Display Venous Blood Gas: No Data to Display Pancreas Panel: No Data to Display Thyroid Panel: No Data to Display Infectious Disease: No Data to Display Blood Cultures: No Data to Display Toxicology Panel: No Data to Display Anesthesia Assessment and Plan Anesthesia History Personal History: No History of Anesthesia Complications Family History: No Family History of Anesthesia Complications Exercise Tolerance Exercise Tolerance: Metabolic Equivalents>4 Pertinent Negatives Pertinent Negatives: No Symptoms of GERD Cardiac & Pulmonary Exam Cardiac Exam: Normal S1/S2 Heart Sounds Pulmonary Exam: Clear Bilateral Breath Sounds Implantable Cardiac Device Does patient have a Pacemaker or an ICD?: No Airway Exam Known Difficult Airway: No Mallampati Class: 1 Mouth Opening: Normal (> 3cm) Thyromental Distance: Less than 3 cm Neck Range of Motion: Full ROM Neck Circumference: Normal Teeth Condition: Normal Dentition ASA Classification ASA Score: ASA 2 Emergency Case?: No NPO Status NPO Status: NPO Clears >2 hours, Solids >8 hours Anesthesia Plan Resuscitation Status: Full Code Anesthesia Technique: General Anesthesia Airway Planned: Endotracheal Tube Pain Management: Surgeon and patient request nerve block Monitors Used: Standard Monitors Preoperative Comments:: From Previous anesthetic note: Sig PMHx: current smoker (cannabis/tobacco), occ EtOH, ADHD, HTN (losartan), anxiety. Previous Anes: 2010/[facility] mac 3 grade 1, easy mask, tolerated beach chair. Discussed risks, benefits, and alternatives of GA and ISB. Risks including but not limited to damage to teeth, lips gums, reactions to medications, skin/nerve/eye injuries, and rare events such as heart/breathing/neurologic complications. Discussed the ISB and the risk of 1:2500-1:5000 of permanent nerve injury, horners syndrome, and diaphragm paralysis. Patient 7/10 pain for that operations postoperative evaluations. Planning addition of precedex gtt and magnesium to hopefully better control his pain this DOS.
--- NOTE | 2022-10-08 07:20 | W.PM.DSUDISC ---
Date of service: 10/08/22 Time of Service: 12:00 Discharge Plan Disposition Patient Disposition: Home Discharge Details Attending Provider: Raghavendra Loyd Primary Care Provider: Ashu Kahn Home Meds and New Rx's Prescriptions: New aspirin 81 mg tablet,delayed release (DR/EC) 81 mg PO DAILY 7 Days Qty: 7 0RF naproxen 250 mg tablet 250 - 500 mg PO BID PRNQty: 40 0RF Rx Instructions: take with a meal oxycodone 5 mg tablet 5 - 10 mg PO Q4H MDD 30 mg PRN (Reason: moderate to severe pain) Qty: 18 0RF Continued dextroamphetamine-amphetamine 30 mg capsule,extended release 24hr 30 mg PO DAILY albuterol sulfate 90 mcg/actuation HFA aerosol inhaler 2 puff inhalation Q4H PRN (Reason: shortness of breath or wheezing) Qty: 8.5 3RF (DME) Space Chamber Spacer See Rx Instructions .ROUTE .MEDSUPPLY Qty: 1 0RF Rx Instructions: As directed losartan 50 mg tablet 50 mg PO DAILY Qty: 90 3RF bupropion HCl [Wellbutrin XL] 300 mg tablet extended release 24 hr 300 mg PO DAILY Qty: 90 3RF acetaminophen [Tylenol Extra Strength] 500 MG tablet 1,000 mg PO PRN lamotrigine 200 mg tablet extended release 24hr 200 mg PO DAILY Qty: 90 3RF clonidine HCl 0.1 mg tablet 0.2 mg PO BID PRN (Reason: PTSD) Qty: 60 2RF Discharge Instructions Additional Instructions: Surgery: Right shoulder arthroscopy with biceps tenodesis, extensive debridement, and subacromial decompression. Activity: You should gradually increase range of motion motion and use of your shoulder. You may use your shoulder for all regular activities while protecting biceps repair. Avoid any weighted elbow flexion or resisted supination for 6-8 weeks. No heavy lifting, reaching overhead, or lifting away from body for approximately 2-3 months. You may use the sling whenever you are out of the house for a few weeks. At home it is best to remove the sling and rest the arm on a pillow at your side or support the operative side with your other hand. A physical therapy prescription will be sent electronically to start in about 3 weeks. Prescriptions: Aspirin 81 mg take 1 daily to prevent a blood clot for 7 days Naproxen 250 mg take 1-2 every 12 hours with a meal as needed for moderate pain Oxycodone 5 mg take 1-2 every 4-6 hours as needed for severe pain You may use [id number] Tylenol (acetaminophen) as needed for mild pain. These pain medications may be taken all at once or in different combinations as needed. Also, recommend Colace (docusate) as a stool softener as surgery and pain medicine cause constipation. You may try [id number] diphenhydramine (Benadryl) 25-50 mg nightly as a sleep aid Dressings: Remove shoulder bandage after 3 days. Leave the sticky Steri-Strips in place until they fall off or remove them after you shower. Cover the incisions with Band-Aids or leave them open to air. You may shower after 5 days. Follow-up: 10-[address] Loyd You may take off the leg compression stockings this evening at home. You may also leave them on a few days longer if you have a history of leg swelling or edema. Let us know right away if you develop any redness, drainage, fevers, chest pain, or trouble breathing. Do not drink alcohol or drive for at least 24 hours after anesthesia. Please call the office during business hours with any questions or concerns. Discharge Orders Discharge Orders: Discharge Order (Routine); Ordered 10/08/22 Ordered By: Raghavendra Loyd DS: Diagnosis Discharge Diagnosis (1) SLAP lesion of right shoulder: Status: Acute (2) Sprain of right acromioclavicular joint: Status: Acute (3) Biceps tendonitis on right: Status: Acute (4) Impingement syndrome of right shoulder: Status: Acute
[2022-10-08] MEDS: Lactated Ringers 1,000 ML 30 ML IV (07:21)
--- NOTE | 2022-10-08 07:22 | ROE_ITS ---
Date of service: 10/08/22 Time of Service: 07:30 Operative Note Operative Note DATE OF PROCEDURE: 10/08/22 PRE-OP DIAGNOSIS: Right: 1. SLAP tear 2. LHB tendinopathy 3. Bursitis POST-OP DIAGNOSIS: same PROCEDURE: Right: 1. Arthroscopic biceps tenodesis, CPT# 45192. This involved arthroscopically suturing and reattaching the long head of the biceps tendon to the proximal humerus at the superior margin of the bicipital groove with a screw at the correct tension. 3. Extensive debridement, CPT# 22718. This involved using arthroscopic hand instruments, power instruments, and radiofrequency instruments to release the long head of the biceps tendon and debride areas of labral tearing, synovitis, and chondromalacia about the biceps groove and lesser tuberosity within the glenohumeral joint anteriorly, superiorly and posteriorly. 4. Subacromial decompression with partial acromioplasty, CPT# 96706. This involved using arthroscopic power instruments and a radiofrequency wand to complete a bursectomy and smooth the undersurface of the acromion. The assistant paralegal was medically required in order to help assist in techniques above, which require positioning the arm, holding the arthroscope, and manipulating multiple instruments and sutures at the same time. This cannot be done without the help of an experienced assistant paralegal. SURGEON: Raghavendra Loyd SENIOR FIRE PROTECTION ENGINEER: Urszula Brown ANESTHESIA TYPE: General LMA/ETT and Primary Nerve Block Refer to Anesthesia Record ESTIMATED BLOOD LOSS: 10 PATHOLOGY: none sent COMPLICATIONS: None Patient was transported to: PACU Patient's condition: stable Implants: Arthrex: 4.75mm SwiveLocks x 1 Indications: The patient was diagnosed with the above conditions and appropriately indicated for surgical intervention. Please see complete medical record for details. Findings: Exam under anesthesia: Full range of motion, no instability, mild to moderate reproducible glenohumeral crepitation Glenohumeral joint: Moderate anterior and interval synovitis. Large displaced anterior and anterior superior labral tear with fraying and detachment free and in the glenohumeral joint. Unstable biceps anchor SLAP tear. Posterior superior labrum with additional fraying and partial tearing. Largely intact articular cartilage except for central glenoid mild chondromalacia. Intact articular rotator cuff throughout without signs of injury. Intact subscapularis. Significant biceps tendon injection inflammation that tracked down the bicipital groove. Subacromial space: Moderately significant bursitis. Injected possibly bruised posterior superior rotator cuff without any structural tearing. Moderately diffuse thin bursal layer rotator cuff fraying. No significant rotator cuff requiring repair. Mild undersurface acromial bone irregularity. Procedure Description: In the operating room, general anesthesia was induced. Bilateral shoulders were examined. The patient was positioned in the beachchair position. All bony prominences were well-padded. Preoperative antibiotics were administered. The shoulder was prepped and draped in the usual sterile fashion. The correct patient, procedure, and side of the procedure were all verified prior to incision. Starting through the posterior portal a standard complete diagnostic arthroscopy was performed of the glenohumeral joint including inspection of the long head of the biceps, anterior and superior labrum, subscapularis tendon, supraspinatus and infraspinatus tendons, and axillary recess. The glenoid and humeral head cartilage as well as the posterior labrum were inspected from an anterior viewing portal. Significant findings and interventions noted above. Of note, the displaced anterior anterior labral tear was resected and the remaining anterior, superior, and posterior superior labrum was contoured to a stable margin. An all-arthroscopic suprapectoral biceps tenodesis was performed through an anterior portal using a Loop N Tack method with a SutureTape FiberLink cinched around and through the tendon. The biceps was tenotomized from the labrum and fixated with a suture anchor at the superior margin of the bicipital groove. The safety stitch was then used with 1 and passed around the tendon in a simple circumferential fashion and secured with SMC arthroscopic knot for additional fixation. Starting through the posterior portal, the arthroscope was directed into the subacromial space. A lateral 50 yard line lateral portal was created. A combination of power instruments and a radiofrequency ablator were used to debride bursitis anteriorly, posteriorly, and laterally as well as expose and smooth bone spurring on the undersurface of the acromion. The coracoacromial ligament was partially released. The bursectomy was completed viewing laterally and working from posteriorly and the rotator cuff was thoroughly inspected with findings noted above. The shoulder was drained of arthroscopic fluid. All portal sites were copiously irrigated. These incisions were closed using 3-0 Monocryl in a buried fashion and then covered with Mastisol, Steri-Strips, Xeroform, dry gauze, and ABDs. The dressings were covered and secured with Medipore tape. The operative extremity was placed into a sling for immobilization. The patient awoke from anesthesia without complication and was transferred to the recovery room in a stable condition.
[2022-10-08] MEDS: ceFAZolin 2 GM/50 ML BAG IVPB (07:54)
--- NOTE | 2022-10-08 08:15 | W.ANESNERVE ---
Nerve Block Single Injection Procedure Date and Time Date Performed: 10/08/22 Procedure Start: 07:20 Location Where Procedure Performed Procedure Location: Day Surgery Unit Reason Performed: Postoperative Analgesia Requesting Provider: Raghavendra Loyd Timeout Performed Timeout Performed: Yes Monitoring Used ECG, Blood Pressure, SpO2 and See EMR for corresponding vital signs Sterility Sterility: Hand Hygiene, Surgical Cap, Surgical Mask, Sterile Gloves and Chlorhexidine Sedation Given During Procedure Sedation Given (Indicate Dose Given): Versed IV Dose:: 2 mg Patient Mental Status Patient Mental Status: Sedate with meaningful communication Nerve Block 1st Nerve Block: Laterality: Right Block Type: Interscalene Ultrasound Image Saved?: Yes Needle / Catheter Used: 100mm SonoPlex II Local Anesthetic Bolus (Indicate Dose Given): Lidocaine used for local infiltration of skin, Injected in 3-5ml increments after negative blood aspiration and Bupivacaine 0.5% Dose:: 20 ml Additives (Indicate Dose Given): None Ultrasound: Sterile probe cover and gel used Nerve Stimulator: Not Used Paresthesia: None Procedure Tolerated: No Complications and Patient tolerated well Procedure Outcome: Successful Procedure Comment: Patient reported pain on injection as well as pressure in shoulder during injection, denied any electrical sensations down the arm. Tolerated well. Plexus protected with saline injection to push away from needle tip, needle tip kept in fluid pocket away from plexus. Performed By: Aguilar Webb
[2022-10-08] MEDS: EPINEPHrine 30 MG/30 ML VIAL (09:00)
[2022-10-08] MEDS: Normal Saline 10 ML VIAL IJ (09:48)
[2022-10-08] MEDS: LORazepam 2 MG/ML VIAL 0.5 MG IVP (09:48)
[2022-10-08] MEDS: HYDROmorphone 2 MG/ML SYR IVP (10:03)
[2022-10-08] MEDS: oxyCODONE 5 MG TAB PO ×2 (11:02→11:57)
--- NOTE | 2022-10-08 12:32 | W.ANESPOSTOP ---
Postoperative Evaluation Date, Time and Location Date Performed: 10/08/22 Time Performed: 12:32 Patient Location: Day Surgery Unit Vital Signs Most Recent Imported Vital Signs: Most Recent Vital Signs Temp Pulse Resp BP Pulse Ox 36.5 C 100 H 17 144/89 H 95 10/08/22 12:23 10/08/22 12:23 10/08/22 12:23 10/08/22 12:23 10/08/22 12:23 Pain Score Most Recent Pain Score: Most Recent Pain Score Pain Level 2 10/08/22 12:23 Assessment Mental Status: Awake (Alert & Oriented to Patient Baseline) Airway and Respiratory Function: Patent airway with normal (patient baseline) respiratory exam Cardiovascular Function: Hemodynamically Stable Hydration Status: Adequately Hydrated Nausea & Vomiting: No Nausea or Vomiting Pain: Pain is tolerable per patient Peripheral Nerve Block: Regional nerve block not resolved at time of post operative discharge Postoperative Comments:: Per patient does not like the feeling of his block and states: I don't think I want one next time. Denies significant discomfort at this time. Has had 10 of oxycodone per RN. Patient and spouse deny questions and patient is cleared for discharge.
== END 2022-10-08 12:42 | disposition home or self-care (01) ==
PROVIDERS: PCP Family Medicine; Visit Provider Student in an Organized Health Care Education/Training Program
PROC: (CPT 29827; principal; 2022-10-08 07:30)
DX: S43.431A Superior glenoid labrum lesion of right shoulder, initial encounter (principal); S43.51XA Sprain of right acromioclavicular joint, initial encounter; M75.41 Impingement syndrome of right shoulder; M75.21 Bicipital tendinitis, right shoulder; M75.51 Bursitis of right shoulder; X58.XXXA Exposure to other specified factors, initial encounter
CPT/HCPCS: 29828; 29826; 29823; 76942; J0131; J0690; J1100; J1170; J1885; J2060; J2250; J2370; J2405

== ENCOUNTER 2023-01-18 01:59 | Outpatient (CLI) | payer BC, SELFPAY ==
[2023-01-18 11:16] LABS: HCT 44.7 % (40.0-50.0); HGB 15.5 g/dL (13.5-17.5); MCH 31.1 pg (27.0-33.0); MCHC 34.7 % (32.0-36.0); MCV 90 fL (80-95); MPV 7.9 fL (8.0-11.0); Platelet Count 315 10^3/uL (130-400); RBC 4.98 10^6/uL (4.36-5.78); RDW 13.7 % (11.8-14.1); RDW-SD 44.9 fL; WBC 10.36 10^3/uL (4.4-10.8)
[2023-01-18 12:06] LABS: Anion Gap 10.7 mmol/L (3-11); BUN 21 mg/dL (7-18); CO2 26.3 mmol/L (21.0-32.0); Calcium 9.1 mg/dL (8.5-10.1); Calculated LDL 111 mg/dL (<100); Chloride 103 mmol/L (98-107); Cholesterol 185 mg/dL (<200); Estimated GFR 96.37 (mL/min/1.73m2); Glucose 113 mg/dL (74-106); HDL Cholesterol 54 mg/dL (40-60); Potassium 4.4 mmol/L (3.5-5.1); Sodium 140 mmol/L (136-145); Triglyceride 102 mg/dL (<150)
[2023-01-20 12:14] LABS: Lamotrigine 0.6 mcg/mL (3.0-15.0)
== END 2023-01-18 02:00 | disposition home or self-care (01) ==
LOC: LBO 01:59
PROVIDERS: PCP Family Medicine; Visit Provider Family Medicine
DX: E78.5 Hyperlipidemia, unspecified (principal); R53.83 Other fatigue; G40.909 Epilepsy, unspecified, not intractable, without status epilepticus; E87.1 Hypo-osmolality and hyponatremia
CPT/HCPCS: 36415; 80048; 80061; 80175; 85027